=== PATIENT | male | born 1995 | race Caucasian/White ===

== ENCOUNTER 2020-08-24 20:47 | Emergency (ER) | payer OTHER ==
[2020-08-24] MEDS ORDERED: AUGMENTIN 875-1 EACH PO (22:34)
== END 2020-08-24 22:40 | disposition home or self-care (01) ==
LOC: FER 20:47
DX: S81.851A Open bite, right lower leg, initial encounter (principal); L03.115 Cellulitis of right lower limb; Z23 Encounter for immunization; W54.0XXA Bitten by dog, initial encounter; Y92.89 Other specified places as the place of occurrence of the external cause; Y99.0 Civilian activity done for income or pay
CPT/HCPCS: 90375; 90471; 90675; 90715

== ENCOUNTER 2020-10-05 21:06 | Emergency (ER) | payer OTHER ==
[~2020-10-05 21:06] MED LIST: AUGMENTIN 875-1 EACH PO
== END 2020-10-05 23:08 | disposition home or self-care (01) ==
LOC: FER 21:06
DX: R51.9 Headache, unspecified (principal); V49.40XA Driver injured in collision with unspecified motor vehicles in traffic accident, initial encounter; Y92.410 Unspecified street and highway as the place of occurrence of the external cause
CPT/HCPCS: 70450; 72125